=== PATIENT | male | born 1990 | race Caucasian/White ===

== ENCOUNTER 2019-01-28 11:48 | Inpatient (IN) ==
[2019-01-28] MEDS ORDERED: Naloxone 0.4 MG/ML INJ IVP PRN (14:15)
[2019-01-28] MEDS ORDERED: Ondansetron ODT 4 MG TAB.RAPDIS SL PRN (14:15)
[2019-01-28] MEDS: Cefepime HCl 1,000 MG in Water for inj. (sterile) 10 ML IVP SCH ×2 (15:55→23:57)
[2019-01-28] MEDS ORDERED: Nicotine 2 MG GUM BC PRN (16:07)
[2019-01-28] MEDS ORDERED: Isovue-370 500 ML BOTTLE IVP ONE (16:22)
[2019-01-28] MEDS: Nicotine 21 MG PATCH.TD24 TD SCH (18:22)
[2019-01-28] MEDS: Acetaminophen 325 MG TABLET PO PRN (20:36)
[2019-01-28 21:10] LABS: Amphetamine Screen,Urine Negative ng/mL (Cutoff=1000); Barbiturate Screen,Urine Negative ng/mL (Cutoff=200); Benzodiazepines Screen,Urine Negative ng/mL (Cutoff=200); Cannabinoid Screen,Urine Positive ng/mL (Cutoff = 50); Cocaine Screen,Urine Negative ng/mL (Cutoff= 300); Opiate Screen,Urine Negative ng/mL (Cutoff=300); Phencyclidine Screen,Urine Negative ng/mL (Cutoff=25)
[2019-01-28] MEDS: Clindamycin 600 MG/50 ML 600 MG/50 ML IV.SOLN IVPB SCH (23:57)
[2019-01-29 01:42] LABS: Hematocrit 40.5 % (37.5-50.1); Hemoglobin 14.1 g/dL (12.9-16.9); Mean Corpuscular HGB Conc 34.8 g/dL (31.6-35.5); Mean Corpuscular Hemoglobin 32.7 pg (28.0-33.3); Mean Platelet Volume 10.2 fL (9.4-12.4); Platelet Count 313 K/mcL (140-400); Red Blood Count 4.31 M/mcL (4.19-5.50); Red Cell Distribution Width 12.5 % (11.5-14.5); White Blood Count 14.8 K/mcL (4.3-11.1)
[2019-01-29 02:02] LABS: BUN/Creatinine Ratio 10 (6-26); Blood Urea Nitrogen 8 mg/dL (6-20); Calcium 8.4 mg/dL (8.6-10.3); Carbon Dioxide 28 mEq/L (23-29); Chloride 104 mEq/L (98-107); Glucose 197 mg/dL (70-105); Osmolality,Calculated 286 (280-300); Potassium 3.6 mEq/L (3.5-5.1); Sodium 136 mEq/L (136-145); eGFR For African Americans > 60 (> 60); eGFR For Non-African Americans > 60 (> 60)
[2019-01-29] MEDS: Cefepime HCl 1,000 MG in Water for inj. (sterile) 10 ML IVP SCH ×3 (07:52→23:47)
[2019-01-29] MEDS: Clindamycin 600 MG/50 ML 600 MG/50 ML IV.SOLN IVPB SCH ×3 (07:53→23:48)
[2019-01-29] MEDS ORDERED: Lidocaine -MPF 1% 5 ML AMPUL INFILT ONE (07:56)
[2019-01-29] MEDS: Nicotine 21 MG PATCH.TD24 TD SCH (08:01)
[2019-01-29] MEDS ORDERED: 0.9 % Sodium Chloride 1,000 ML IVC SCH (10:45)
[2019-01-29] MEDS: Acetaminophen 325 MG TABLET PO PRN (20:10)
[2019-01-30 01:49] LABS: Amphetamine Screen,Urine Negative ng/mL (Cutoff=1000); Barbiturate Screen,Urine Negative ng/mL (Cutoff=200); Benzodiazepines Screen,Urine Negative ng/mL (Cutoff=200); Cannabinoid Screen,Urine Negative ng/mL (Cutoff = 50); Cocaine Screen,Urine Negative ng/mL (Cutoff= 300); Opiate Screen,Urine Negative ng/mL (Cutoff=300); Phencyclidine Screen,Urine Negative ng/mL (Cutoff=25)
[2019-01-30 04:53] LABS: Hematocrit 43.3 % (37.5-50.1); Hemoglobin 15.1 g/dL (12.9-16.9); Mean Corpuscular HGB Conc 34.9 g/dL (31.6-35.5); Mean Corpuscular Hemoglobin 32.8 pg (28.0-33.3); Mean Corpuscular Volume 94.1 fL (83.0-100.0); Mean Platelet Volume 10.6 fL (9.4-12.4); Platelet Count 339 K/mcL (140-400); Red Cell Distribution Width 12.6 % (11.5-14.5); White Blood Count 11.5 K/mcL (4.3-11.1)
[2019-01-30 05:03] LABS: BUN/Creatinine Ratio 9 (6-26); Blood Urea Nitrogen 6 mg/dL (6-20); Calcium 8.8 mg/dL (8.6-10.3); Carbon Dioxide 27 mEq/L (23-29); Chloride 107 mEq/L (98-107); Glucose 106 mg/dL (70-105); Osmolality,Calculated 284 (280-300); Potassium 4.3 mEq/L (3.5-5.1); Sodium 138 mEq/L (136-145); eGFR For African Americans > 60 (> 60); eGFR For Non-African Americans > 60 (> 60)
[2019-01-30] MEDS: Nicotine 21 MG PATCH.TD24 TD SCH (08:47)
[2019-01-30] MEDS: Clindamycin 600 MG/50 ML 600 MG/50 ML IV.SOLN IVPB SCH (08:47)
[2019-01-30] MEDS: Cefepime HCl 1,000 MG in Water for inj. (sterile) 10 ML IVP SCH (08:47)
[2019-01-30] MEDS: Lactobacillus 1 EACH CAP.SPRINK PO SCH ×2 (10:02→19:34)
[2019-01-30] MEDS: Acetaminophen 325 MG TABLET PO PRN (14:59)
[2019-01-30] MEDS ORDERED: levoFLOXacin 750 MG TABLET PO SCH (16:15)
[2019-01-30] MEDS: Doxycycline 100 MG CAPSULE PO SCH (19:34)
[2019-01-31 06:52] LABS: Hematocrit 43.5 % (37.5-50.1); Hemoglobin 14.6 g/dL (12.9-16.9); Mean Corpuscular HGB Conc 33.6 g/dL (31.6-35.5); Mean Corpuscular Hemoglobin 32.9 pg (28.0-33.3); Mean Platelet Volume 10.6 fL (9.4-12.4); Platelet Count 354 K/mcL (140-400); Red Blood Count 4.44 M/mcL (4.19-5.50); Red Cell Distribution Width 12.6 % (11.5-14.5); White Blood Count 10.3 K/mcL (4.3-11.1)
[2019-01-31 07:16] LABS: BUN/Creatinine Ratio 9 (6-26); Blood Urea Nitrogen 7 mg/dL (6-20); Calcium 9.2 mg/dL (8.6-10.3); Carbon Dioxide 27 mEq/L (23-29); Chloride 105 mEq/L (98-107); Glucose 104 mg/dL (70-105); Osmolality,Calculated 284 (280-300); Potassium 4.4 mEq/L (3.5-5.1); Sodium 138 mEq/L (136-145); eGFR For African Americans > 60 (> 60); eGFR For Non-African Americans > 60 (> 60)
[2019-01-31] MEDS: Doxycycline 100 MG CAPSULE PO SCH ×2 (09:02→19:39)
[2019-01-31] MEDS: Lactobacillus 1 EACH CAP.SPRINK PO SCH ×2 (09:02→19:39)
[2019-01-31] MEDS: Nicotine 21 MG PATCH.TD24 TD SCH (09:03)
[2019-01-31] MEDS: Silvasorb 44.4 ML TUBE TP SCH (18:45)
[2019-01-31] MEDS: Acetaminophen 325 MG TABLET PO PRN (21:07)
[2019-02-01 02:24] LABS: Hematocrit 44.4 % (37.5-50.1); Hemoglobin 15.2 g/dL (12.9-16.9); Mean Corpuscular HGB Conc 34.2 g/dL (31.6-35.5); Mean Corpuscular Hemoglobin 32.1 pg (28.0-33.3); Mean Corpuscular Volume 93.9 fL (83.0-100.0); Platelet Count 407 K/mcL (140-400); Red Blood Count 4.73 M/mcL (4.19-5.50); Red Cell Distribution Width 12.3 % (11.5-14.5); White Blood Count 12.4 K/mcL (4.3-11.1)
[2019-02-01] MEDS: Doxycycline 100 MG CAPSULE PO SCH ×2 (09:01→21:55)
[2019-02-01] MEDS: Nicotine 21 MG PATCH.TD24 TD SCH (09:01)
[2019-02-01] MEDS: Silvasorb 44.4 ML TUBE TP SCH (09:01)
[2019-02-01] MEDS: Lactobacillus 1 EACH CAP.SPRINK PO SCH ×2 (09:01→21:55)
[2019-02-02] MEDS: Doxycycline 100 MG CAPSULE PO SCH (09:07)
[2019-02-02] MEDS: Lactobacillus 1 EACH CAP.SPRINK PO SCH (09:07)
[2019-02-02] MEDS: Nicotine 21 MG PATCH.TD24 TD SCH (09:07)
[2019-02-02] MEDS: Silvasorb 44.4 ML TUBE TP SCH (09:10)
[2019-02-02 11:35] VITALS: BP 111/63
== END 2019-02-02 13:03 | disposition home or self-care (01) | DRG 364 ==
LOC: 3NENU → SUATTDRO 13:00 → 3BNU 01-31 15:23
PROVIDERS: ADMIT Internal Medicine; ATTEND Internal Medicine